=== PATIENT | male | born 1945 | race Hispanic/Latino ===

== ENCOUNTER 2019-04-05 07:56 | Emergency (ER) | payer MEDICARE ==
[~2019-04-05 07:56] MED LIST: HYDR25TA PO; OMEG300C3 PO; TYL2 PO; VITA1CAP85 PO
== END 2019-04-05 08:43 | disposition home or self-care (01) ==
LOC: EDH 07:56
DX: L03.114 Cellulitis of left upper limb (principal); I10 Essential (primary) hypertension; Z98.890 Other specified postprocedural states; Z88.0 Allergy status to penicillin

== ENCOUNTER → 2020-10-21 | Outpatient (CLI) | payer MEDICARE | END | disposition home or self-care (01) | LOC: RAH 14:49 | PROVIDERS: ATTEND Neurological Surgery | DX: Z47.89 Encounter for other orthopedic aftercare (principal); G89.18 Other acute postprocedural pain | CPT/HCPCS: 72100 ==

== ENCOUNTER 2021-03-24 03:26 | Emergency (ER) | payer OTHER, MEDICARE | END 2021-03-24 08:32 | disposition left against medical advice (07) | LOC: EDH 03:26 | DX: M54.2 Cervicalgia (principal); Z53.21 Procedure and treatment not carried out due to patient leaving prior to being seen by health care provider ==